=== PATIENT | female | born 1950 | race Caucasian/White ===

== ENCOUNTER → 2016-12-02 | Outpatient (CLI) | payer BC ==
[~2016-12-02] MED LIST: Atarax,Vistaril PO; CYANOCOBALAM1000 MCG PO; Calan PO; Claritin,Alavart PO; Coumadin,Jantoven PO; Feosol PO; Flonase BOTH NARES; Levothroid,Synthroid PO; Lexapro PO; Mevacor PO; Phenergan PO; Prevacid PO; Pyridoxine,Vitamin B PO; Vagifem VG; ZOMIG5 MG PO; [UNRECOGNIZED DRUG - CODE] PO; oxyCODONE PO
== END | disposition home or self-care (01) ==
LOC: CDC 12:38
DX: Z01.810 Encounter for preprocedural cardiovascular examination (principal); G56.01 Carpal tunnel syndrome, right upper limb; Z88.8 Allergy status to other drugs, medicaments and biological substances; Z91.048 Other nonmedicinal substance allergy status; Z91.09 Other allergy status, other than to drugs and biological substances
CPT/HCPCS: 93000